=== PATIENT | female | born 1985 | race Caucasian/White ===

== ENCOUNTER 2019-01-02 19:46 | Emergency (ER) | payer OTHER ==
[~2019-01-02] VITALS: Ht 162.6 cm; Wt 76.2 kg
[2019-01-02] MEDS ORDERED: ONDANSETRON PF 4 MG/2 ML VIAL. IV ONE (20:30)
[2019-01-02] MEDS ORDERED: IV NORMAL SALINE 1,000ML 1,000 ML IV SCH (20:30)
[2019-01-02] MEDS ORDERED: ACETAMINOPHEN 500 MG TABLET PO ONE (20:30)
[2019-01-02 21:01] LABS: BASO % 0 % (0-3); EOS % 0 % (0-3); HEMATOCRIT 38.5 % (36.0-47.0); LYMPH # 0.5 x10^3/uL (1.0-4.8); LYMPH % 7 % (24-48); MEAN CORPUSCULAR HEMOGLOBIN 29 pg (25-35); MEAN CORPUSCULAR HGB CONC 34 g/dL (31-37); MEAN CORPUSCULAR VOLUME 86 fL (79-100); MONO # 0.3 x10^3/uL (0.0-1.1); MONO % 5 % (0-9); NEUT # 5.7 x10^3uL (1.8-7.7); NEUT % 88 % (31-73); PLATELET COUNT 224 x10^3/uL (140-400); RED BLOOD COUNT 4.46 x10^6/uL (3.50-5.40); RED CELL DISTRIBUTION WIDTH 13.7 % (11.5-14.5); WHITE BLOOD COUNT 6.5 x10^3/uL (4.0-11.0)
[2019-01-02 21:24] LABS: ALBUMIN 3.5 g/dL (3.4-5.0); ALBUMIN/GLOBULIN RATIO 0.9 (1.0-1.7); CALCIUM 8.9 mg/dL (8.5-10.1); CREATININE 0.9 mg/dL (0.6-1.0); GFR 71.3; POTASSIUM 3.8 mmol/L (3.5-5.1); TOTAL BILIRUBIN 0.3 mg/dL (0.2-1.0); TOTAL PROTEIN 7.4 g/dL (6.4-8.2)
[2019-01-02 21:31] LABS: BILIRUBIN,URINE NEG (NEG); CLARITY,URINE HAZY; COLOR,URINE YELLOW; GLUCOSE,URINE NEG (NEG); NITRITE,URINE POS (NEG); UROBILINOGEN,URINE 2 mg/dL (0.2 mg/dL); WBC,URINE 20-40 /HPF (0-4)
[2019-01-02 21:32] LABS: BACTERIA,URINE FEW /HPF (0-FEW); SQUAMOUS EPITHELIAL CELL,UR OCC /LPF
--- NOTE | 2019-01-02 21:39 | PHYS DOC ---
Past History Past Medical History: Anxiety, Depression, UTI, Other Additional Past Medical Histor: adhd Past Surgical History: , Other Additional Past Surgical Histo: dental Alcohol Use: Occasionally Drug Use: None Adult General Chief Complaint Chief Complaint: PAIN ON URINATION [facility] HPI Patient is a 33-year-old female who presents with complaint of right sided abdominal pain with urinary pain that started about a week ago. She states that initially she thought it was just due to her menstrual cycle but cycle has since and did and she is having increase in pain. She states that she also has pain in her right mid to lower back area. She admits to nausea but is had no vomiting. She states that her appetite has been decreased. Patient rates pain at an 8 out of 10. She states that pain is worsened when she walks. She states that nothing is improving her pain.[] Review of Systems Review of Systems Constitutional: Positive fever and chills [] Respiratory: Denies cough or shortness of breath [] Cardiovascular: No additional information not addressed in HPI [] GI: Complains of abdominal pain with nausea. Denies vomiting or diarrhea [] : Complains of dysuria[] Musculoskeletal: Complains of right-sided back pain [] All other systems were reviewed and found to be within normal limits, except as documented in this note. Current Medications Current Medications Current Medications Medications (Trade) Dose Ordered Sig/Christopher Start Time Stop Time Status Last Admin Dose Admin Acetaminophen (Tylenol) 1,000 mg 1X ONCE 01/02/19 20:30 01/02/19 21:01 DC 01/02/19 20:55 1,000 MG Fentanyl Citrate (Fentanyl 2ml Vial) 50 mcg PRN Q15MIN PRN 01/02/19 20:30 01/03/19 20:29 01/02/19 20:55 50 MCG Ondansetron HCl (Zofran) 4 mg 1X ONCE 01/02/19 20:30 01/02/19 21:01 DC 01/02/19 20:49 4 MG Sodium Chloride 1,000 ml @ 1,000 mls/hr Q1H 01/02/19 20:30 01/02/19 21:29 DC 01/02/19 20:46 1,000 MLS/HR Allergies Allergies Allergies Coded Allergies Type Severity Reaction Last Updated Verified escitalopram Allergy Unknown 01/02/19 Yes Physical Exam Physical Exam Constitutional: Well developed, well nourished, in mild distress, non-toxic appearance. [] HENT: Normocephalic, atraumatic, bilateral external ears normal, oropharynx moist, no oral exudates, nose normal. [] Eyes: PERRLA, EOMI, conjunctiva normal, no discharge. [] Neck: Normal range of motion, no tenderness, supple, no stridor. [] Cardiovascular: Tachycardic rate with regular rhythm[] Lungs & Thorax: Bilateral breath sounds clear to auscultation [] Abdomen: Bowel sounds normal, soft, with right lower abdominal tenderness. [] Skin: Warm, dry, no erythema, no rash. [] Back: Positive right sided CVA tenderness. [] Extremities: No tenderness, no cyanosis, no clubbing, ROM intact, no edema. [] Neurologic: Alert and oriented X 3, no focal deficits noted. [] Current Patient Data Vital Signs Vital Signs Date Time Temp Pulse Resp B/P (MAP) Pulse Ox O2 Delivery O2 Flow Rate FiO2 01/02/19 20:55 20 94 Room Air 01/02/19 20:00 103.1 125 Lab Results Laboratory Tests Test 01/02/19 20:00 01/02/19 20:30 Urine Collection Type Unknown Urine Color Yellow Urine Clarity Hazy Urine pH 6.0 Urine Specific [place] 1.025 Urine Protein 30 mg/dl (NEG-TRACE) Urine Glucose (UA) Neg mg/dL (NEG) Urine Ketones (Stick) 40 mg/dL (NEG) Urine Blood Small (NEG) Urine Nitrite Pos (NEG) Urine Bilirubin Neg (NEG) Urine Urobilinogen Dipstick 2 mg/dL (0.2 mg/dL) Urine Leukocyte Esterase Mod (NEG) Urine RBC 1-2 /HPF (0-2) Urine WBC 20-40 /HPF (0-4) Urine Squamous Epithelial Cells Occ /LPF Urine Bacteria Few /HPF (0-FEW) Urine Mucus Slight /LPF White Blood Count 6.5 x10^3/uL (4.0-11.0) Red Blood Count 4.46 x10^6/uL (3.50-5.40) Hemoglobin 13.0 g/dL (12.0-15.5) Hematocrit 38.5 % (36.0-47.0) Mean Corpuscular Volume 86 fL (79-100) Mean Corpuscular Hemoglobin 29 pg (25-35) Mean Corpuscular Hemoglobin Concent 34 g/dL (31-37) Red Cell Distribution Width 13.7 % (11.5-14.5) Platelet Count 224 x10^3/uL (140-400) Neutrophils (%) (Auto) 88 % (31-73) H Lymphocytes (%) (Auto) 7 % (24-48) L Monocytes (%) (Auto) 5 % (0-9) Eosinophils (%) (Auto) 0 % (0-3) Basophils (%) (Auto) 0 % (0-3) Neutrophils # (Auto) 5.7 x10^3uL (1.8-7.7) Lymphocytes # (Auto) 0.5 x10^3/uL (1.0-4.8) L Monocytes # (Auto) 0.3 x10^3/uL (0.0-1.1) Eosinophils # (Auto) 0.0 x10^3/uL (0.0-0.7) Basophils # (Auto) 0.0 x10^3/uL (0.0-0.2) Sodium Level 134 mmol/L (136-145) L Potassium Level 3.8 mmol/L (3.5-5.1) Chloride Level 99 mmol/L (98-107) Carbon Dioxide Level 23 mmol/L (21-32) Anion Gap 12 (6-14) Blood Urea Nitrogen 9 mg/dL (7-20) Creatinine 0.9 mg/dL (0.6-1.0) Estimated GFR (Cockcroft-Gault) 71.3 BUN/Creatinine Ratio 10 (6-20) Glucose Level 111 mg/dL (70-99) H Lactic Acid Level 1.0 mmol/L (0.4-2.0) Calcium Level 8.9 mg/dL (8.5-10.1) Total Bilirubin 0.3 mg/dL (0.2-1.0) Aspartate Amino Transferase (AST) 40 U/L (15-37) H Alanine Aminotransferase (ALT) 45 U/L (14-59) Alkaline Phosphatase 76 U/L (46-116) Total Protein 7.4 g/dL (6.4-8.2) Albumin 3.5 g/dL (3.4-5.0) Albumin/Globulin Ratio 0.9 (1.0-1.7) L Lipase 119 U/L (73-393) EKG EKG [] Radiology/Procedures Radiology/Procedures [] Impressions: PROCEDURE: CT ABD PELV W/ IV CONTRST ONLY CT scan abdomen and pelvis with contrast 01/02/2019 CLINICAL HISTORY: Right-sided abdominal pain with chills and fever TECHNIQUE: After the intravenous administration of 75 cc of Omnipaque 300, contiguous, 5 mm axial sections were obtained to the abdomen and pelvis. One or more of the following individualized dose reduction techniques were utilized for this study: 1. Automated exposure control. 2. Adjustment of the mA and/or kV according to patient size. 3. Use of iterative reconstruction technique. FINDINGS: Images through the lung bases demonstrate minimal dependent subsegmental atelectasis bilaterally. The liver, spleen, pancreas, and adrenal glands are within normal limits. A 3 mm nonobstructing calculus is seen involving the midpole the left kidney. Low-attenuation lesions are seen involving both kidneys which likely represent cysts. These measure 3 mm to 1 cm in size. Patchy enhancement of the right kidney is seen. Mild fullness of the right intrarenal collecting system and right ureter is noted. These findings could be seen with pyelonephritis. No ureteral calculus is seen. The abdominal aorta tapers normally. The gallbladder is slightly contracted. No free fluid or free air is seen within the abdomen. There is no evidence of bowel obstruction. The appendix is well-visualized and is within normal limits. Images through the pelvis demonstrate the urinary bladder distended with urine. No adnexal mass is seen. The osseous structures are grossly intact. IMPRESSION: Findings are seen suggestive of pyelonephritis involving the right kidney. Clinical correlation is recommended. Electronically signed by: Nick Vega MD (01/02/2019 11:08 PM) [facility] Course & Med Decision Making Course & Med Decision Making Pertinent Labs and Imaging studies reviewed. (See chart for details) Patient moved to room upon arrival was evaluated by your medical staff after which workup was initiated to include blood work, urine and CT of the abdomen and pelvis. Patient's workup is returned with findings consistent with pyelonephritis. Her white blood cell count is in the normal range. I did discuss options of admission to this facility versus discharge home with outpatient antibiotics and patient indicates that she prefers discharge home and she has children at home. She does indicate that she is feeling much better at this time. [place] Disclaimer [place] Disclaimer This electronic medical record was generated, in whole or in part, using a voice recognition dictation system. Departure Departure: Impression: Primary Impression: Pyelonephritis Disposition: HOME, SELF-CARE Condition: STABLE Referrals: PCP,DAYNE (PCP) Patient Instructions: Pyelonephritis, Adult Additional Instructions: Take prescribed medications as directed. If symptoms worsen, return to emergency room. Scripts Hydrocodone Bit/Acetaminophen (HYDROCODONE-APAP 7.5-325 ) 1 Each Tablet 1 TAB PO PRN Q6HRS PRN for PAIN, #15 TAB 0 Refills Prov: JOYCE NOLAN Jr. DO 01/02/19 Ondansetron Hcl (ZOFRAN) 4 Mg Tablet 4 MG PO Q6HRS PRN for NAUSEA, #12 TAB Prov: JOYCE NOLAN Jr. DO 01/02/19 Levofloxacin (LEVAQUIN) 750 Mg Tablet 1 TAB PO DAILY for infection, #10 TAB Prov: JOYCE NOLAN Jr. DO 01/02/19 JOYCE NOLAN Jr. DO Jan 02, 2019 21:39
[2019-01-02] MEDS ORDERED: IV NORMAL SALINE 50ML 50 ML ONE (21:41)
[2019-01-02] MEDS ORDERED: cefTRIAXone SODIUM 1 GM VIAL ONE (21:41)
[2019-01-02] MEDS ORDERED: IOHEXOL 300 MG/ML 75 ML VIAL. IV ONE (22:15)
[2019-01-02 23:04] VITALS: BP 129/71
--- NOTE | 2019-01-02 23:11 | RAD ---
CT scan abdomen and pelvis with contrast 01/02/2019 CLINICAL HISTORY: Right-sided abdominal pain with chills and fever TECHNIQUE: After the intravenous administration of 75 cc of Omnipaque 300, contiguous, 5 mm axial sections were obtained to the abdomen and pelvis. One or more of the following individualized dose reduction techniques were utilized for this study: 1. Automated exposure control. 2. Adjustment of the mA and/or kV according to patient size. 3. Use of iterative reconstruction technique. FINDINGS: Images through the lung bases demonstrate minimal dependent subsegmental atelectasis bilaterally. The liver, spleen, pancreas, and adrenal glands are within normal limits. A 3 mm nonobstructing calculus is seen involving the midpole the left kidney. Low-attenuation lesions are seen involving both kidneys which likely represent cysts. These measure 3 mm to 1 cm in size. Patchy enhancement of the right kidney is seen. Mild fullness of the right intrarenal collecting system and right ureter is noted. These findings could be seen with pyelonephritis. No ureteral calculus is seen. The abdominal aorta tapers normally. The gallbladder is slightly contracted. No free fluid or free air is seen within the abdomen. There is no evidence of bowel obstruction. The appendix is well-visualized and is within normal limits. Images through the pelvis demonstrate the urinary bladder distended with urine. No adnexal mass is seen. The osseous structures are grossly intact. IMPRESSION: Findings are seen suggestive of pyelonephritis involving the right kidney. Clinical correlation is recommended. Electronically signed by: Nick Vega MD (01/02/2019 11:08 PM) [facility]
[2019-01-02] MEDS ORDERED: HYDR-2765 PO (23:19)
[2019-01-02] MEDS ORDERED: ONDA4TAB7 PO (23:19)
[2019-01-02] MEDS ORDERED: LEVO750T31 PO (23:19)
== END 2019-01-02 23:35 | disposition home or self-care (01) ==
LOC: ER 19:46
DX: N12 Tubulo-interstitial nephritis, not specified as acute or chronic (principal); Z87.440 Personal history of urinary (tract) infections; Z98.890 Other specified postprocedural states; Z88.8 Allergy status to other drugs, medicaments and biological substances
CPT/HCPCS: 36415; 74177; 80053; 81001; 83605; 83690; 85025; 87040; 87086; 96365; 96375; 99285; J0696; J2405; J3010; Q9967; J7030